=== PATIENT | female | born 1960 | race Caucasian/White ===

== ENCOUNTER 2016-09-17 09:19 | Emergency (ER) | payer MEDICAID ==
[~2016-09-17] VITALS: Ht 167.6 cm; Wt 63.5 kg
[2016-09-17 09:24] VITALS: BP 157/103
[2016-09-17] MEDS ORDERED: ORE25 PO (09:26)
--- NOTE | 2016-09-17 09:27 | NUR ---
Patient ambulated to bed 06.
[2016-09-17] MEDS ORDERED: PROCHLORPERAZINE 10 MG/2 ML VIAL IVP ONE (09:40)
[2016-09-17] MEDS ORDERED: SUMAtriptan 6 MG/0.5 ML VIAL SUBQ ONE (09:40)
[2016-09-17] MEDS ORDERED: diphenhydrAMINE 50 MG/ML VIAL IVP ONE (09:40)
[2016-09-17] MEDS ORDERED: NACL 0.9% 1,000 ML IV ONE (09:40)
--- NOTE | 2016-09-17 09:53 | NUR ---
Dr. Jacobs evaluating patient at bedside.
--- NOTE | 2016-09-17 10:30 | NUR ---
PT STS 0/10 PAIN. JOE JOHNSON MADE AWARE.
--- NOTE | 2016-09-17 10:50 | NUR ---
ORANGE SURVEY GIVEN TO PT.
[2016-09-17 11:00] VITALS: BP 132/90
--- NOTE | 2016-09-17 11:00 | NUR ---
Patient discharged with v/s stable. Written and verbal after care instructions given and explained. Patient alert, oriented and verbalized understanding of instructions. Ambulatory with steady gait. All questions addressed prior to discharge. ID band removed. Patient advised to follow up with PMD. Rx of IMITREX AND COMPAZINE given. Patient educated on indication of medication including possible reaction and side effects. Opportunity to ask questions provided and answered.
== END 2016-09-17 11:00 | disposition home or self-care (01) ==
LOC: MED 09:19
DX: G43.909 Migraine, unspecified, not intractable, without status migrainosus (principal); I10 Essential (primary) hypertension
CPT/HCPCS: 96361; 96372; 96374; 96375; 99284; J0780; J1200; J3030; J7030

== ENCOUNTER 2016-10-26 16:32 | Emergency (ER) | payer MEDICAID ==
[~2016-10-26] VITALS: Ht 167.6 cm; Wt 72.1 kg
[~2016-10-26 16:32] MED LIST: ORE25 PO
[2016-10-26 16:46] VITALS: BP 152/84
--- NOTE | 2016-10-26 18:27 | NUR ---
PATIENT CALLED FROM [facility] NO ANSWER PATIENT IS LWBS.
== END 2016-10-26 18:16 | disposition left against medical advice (07) ==
LOC: MED 16:32
DX: L02.11 Cutaneous abscess of neck (principal); Z53.21 Procedure and treatment not carried out due to patient leaving prior to being seen by health care provider